=== PATIENT | female | born 1970 ===

== ENCOUNTER 2017-11-07 13:58 | Emergency (ER) | payer BC ==
[2017-11-07 15:26] VITALS: BP 115/82
--- NOTE | 2017-11-07 17:33 | UC ---
Complaint Female HPI - HPI Summary HPI Summary: preeti is 47-year-old female presenting to the with chief complaint of suprapubic pressure without pain. Also endorses frequency, urgency and pain as she is stopping the strain on urination. She states she has been sitting for a few days while weeping and had tight pants to the area which may be contributory. Denies any chance of STDs. Denies any back pain. Denies any fevers, sweats, chills. She has never had a kidney stone. History of UTI several years ago, but states she had more burning at that time. Denies any vaginal discharge, or any malodorous discharge. She states she awoke this morning with slight itching to the vagina as well, but this has since dissipated. She has never had a yeast infection. - History Of Current Complaint Chief Complaint: UCGU Stated Complaint: VAGINAL COMPLAINT Time Seen by Provider: 11/07/17 16:25 Hx Obtained From: Patient ?: No Onset/Duration: Sudden Onset Timing: Constant Severity Initially: Moderate Severity Currently: Moderate Pain Intensity: 2 Pain Scale Used: 0-10 Numeric Character: Burning Alleviating Factor(s): Position - standing improves the pain Associated Signs And Symptoms: Negative: Fever, Back Pain, Vaginal Bleeding/ Discharge, Vaginal Discharge, Vomiting(# Of Episodes =), Genital Swelling, Retained Foregin Body (Specify) - Risk Factors Ectopic Risk Factor: Negative Ovarian Torsion Risk Factor: Negative - Allergies/Home Medications Allergies/Adverse Reactions: Allergies Allergy/AdvReac Type Severity Reaction Status Date / Time No Known Allergies Allergy Verified 11/07/17 15:26 PMH/Surg Hx/FS Hx/Imm Hx Previously Healthy: Yes - Surgical History Surgical History: Yes Surgery Procedure, Year, and Place: Right acl 2016 - Family History Known Family History: Positive: Unknown - Social History Occupation: Employed Full-time Lives: With Family Alcohol Use: None Substance Use Type: None Smoking Status (MU): Former Smoker Review of Systems Constitutional: Negative Skin: Negative Respiratory: Negative Cardiovascular: Negative Genitourinary: Dysuria, Frequency, Urgency, Other - suprapubic pain Motor: Negative Neurovascular: Negative Musculoskeletal: Negative Neurological: Negative Is Patient Immunocompromised?: No All Other Systems Reviewed And Are Negative: Yes Physical Exam Triage Information Reviewed: Yes Appearance: Well-Appearing, No Pain Distress, Well-Nourished Vital Signs: Initial Vital Signs Temp 98.1 F 11/07/17 15:22 Pulse 73 11/07/17 15:22 Resp 18 11/07/17 15:22 BP 115/82 11/07/17 15:22 Pulse Ox 100 11/07/17 15:22 Vital Signs Reviewed: Yes Neck exam: Normal Neck: Positive: Supple, No Lymphadenopathy Respiratory: Positive: Chest non-tender Cardiovascular: Positive: RRR, No Murmur Musculoskeletal Exam: Normal Musculoskeletal: Positive: Strength Intact Neurological: Positive: Alert Psychological: Positive: Normal Response To Family Skin Exam: Normal Complaint Female Dx - Course Course Of Treatment: during the course the patient is evaluated for UTI versus yeast infection. She has suprapubic tenderness on palpation. She endorses this pain as pressure and states she is also having some burning to the end of her urination stream. She has frequency going 2-3 times per hour. She states she does not feel she is dehydrated and has been drinking plenty of water. She denies any chance of STDs. She denies any vaginal discharge which is malodorous. UA obtained which shows negative for leuks and PVCs. Based on her symptoms and she will still be treated as a UTI. She will follow-up with urology for any worsening or changing symptoms as this could be an interstitial cystitis. She is given Pyridium for bladder pressure and discomfort. - Differential Dx/Diagnosis Provider Diagnoses: UTI Discharge - Sign-Out/Discharge Documenting (check all that apply): Discharge/Admit/Transfer - Discharge Plan Condition: Stable Disposition: HOME Prescriptions: Cephalexin CAP* [Keflex CAP*] 500 mg PO QID #20 cap MDD 4 Phenazopyridine TAB* [Pyridium 100 mg TAB*] 100 mg PO TID #12 tab Patient Education Materials: Dysuria (ED) Referrals: No Primary Care Phys,NOPCP [Primary Care Provider] - Nehemias Wooten MD [Medical Doctor] - Additional Instructions: Keflex take 4 times daily 5 days Pyridium may be taken up to 3 times daily If you develop any fevers, sweats, chills, go to the ED immediately For any worsening symptoms, follow-up with urology - Billing Disposition and Condition Condition: STABLE Disposition: HOME
--- NOTE | 2017-11-09 07:57 | UC ---
- Progress Note Progress Note: notify pt no UTI stop antibiotic recheck if still symptomatic Discharge - Sign-Out/Discharge Documenting (check all that apply): Post-Discharge Follow Up - Discharge Plan Condition: Stable Disposition: HOME Prescriptions: Cephalexin CAP* [Keflex CAP*] 500 mg PO QID #20 cap MDD 4 Phenazopyridine TAB* [Pyridium 100 mg TAB*] 100 mg PO TID #12 tab Patient Education Materials: Dysuria (ED) Referrals: No Primary Care Phys,NOPCP [Primary Care Provider] - Nehemias Wooten MD [Medical Doctor] - Additional Instructions: Keflex take 4 times daily 5 days Pyridium may be taken up to 3 times daily If you develop any fevers, sweats, chills, go to the ED immediately For any worsening symptoms, follow-up with urology - Billing Disposition and Condition Condition: STABLE Disposition: HOME
== END 2017-11-07 16:50 | disposition home or self-care (01) ==
LOC: UCEAST 13:58
DX: N39.0 Urinary tract infection, site not specified (principal); Z87.891 Personal history of nicotine dependence
CPT/HCPCS: 81003; 87086; 99202; G0463

== ENCOUNTER 2017-11-09 13:19 | Emergency (ER) | payer BC ==
[2017-11-09] MEDS ORDERED: NS 0.9% 1000 ML* 1,000 ML IV ONE (13:51)
[2017-11-09 14:07] LABS: ABS Basophils 0.1 10^3/ul (0-0.2); ABS Eosinophils 0.1 10^3/ul (0-0.6); ABS Lymphocytes 2.3 10^3/ul (1.0-4.8); ABS Monocytes 0.4 10^3/ul (0-0.8); ABS Neutrophils 3.7 10^3/ul (1.5-7.7); ABS Nucleated RBC 0 10^3/ul; Eosinophil % 1.6 % (0-6); Hematocrit 38 % (35-47); Hemoglobin 12.7 g/dl (12.0-16.0); Lymphocyte % 34.5 % (25-47); Mean Corpuscular HGB Conc 33 g/dl (31-36); Mean Corpuscular Hemoglobin 29 pg (27-31); Mean Corpuscular Volume 88 fL (80-97); Mean Platelet Volume 8.6 um3 (7.4-10.4); Nucleated Red Blood Cells % 0.1; Platelet Count 184 10^3/ul (150-450); Red Blood Count 4.34 10^6/ul (4.0-5.4); Red Cell Distribution Width 13 % (10.5-15); White Blood Count 6.6 10^3/ul (3.5-10.8)
[2017-11-09 14:15] LABS: INR 0.92 (0.77-1.02)
[2017-11-09 14:21] LABS: Urine Appearance Clear; Urine Blood 1+ (Negative); Urine Color Amber; Urine Ketones Negative (Negative); Urine Protein Negative (Negative); Urine Specific Gravity 1.013 (1.010-1.030); Urine Urobilinogen Negative (Negative)
[2017-11-09 14:25] LABS: EGFR Non-African American 76.2 (>60)
[2017-11-09] MEDS ORDERED: Iohexol 300* (CONTRAST) 10 ML SDV IV ONE (15:37)
--- NOTE | 2017-11-09 16:13 | RAD ---
INDICATION: Diverticulitis COMPARISON: None TECHNIQUE: Axial source images were obtained from the hemidiaphragms to the symphysis pubis following administration of oral and intravenous contrast. 76 mL Omnipaque 300 was utilized. Coronal and sagittal reconstructed images were acquired. Lung bases: The lung bases are clear. Liver: The liver is normal in size. There are no masses. There is no ductal dilatation. Gallbladder: There are no calcified gallstones. There is no evidence of wall thickening or pericholecystic fluid. Spleen: The spleen is normal in size. There are no masses. Pancreas: There is no focal pancreatic mass or ductal dilatation. Adrenal glands: There is no evidence of adrenal mass. Kidneys: The kidneys are normal in size and position. There are prompt nephrograms and there is prompt excretion bilaterally. There are no renal parenchymal masses. There is no evidence of nephrolithiasis. Adenopathy: There is no evidence of adenopathy by size criteria. Fluid collections: There are no free or localized fluid collections. Vessels:There are no significant atherosclerotic changes involving the aorta. There is no focal aneurysm. The iliac vessels are normal in caliber. The IVC appears normal. GI tract: There are no acute CT bowel findings. There is no obstruction. The stomach and small bowel appear normal. There is large amount of stool throughout the colon but the colon is otherwise unremarkable. There is no CT evidence of diverticulitis there are no significant diverticula. Pelvic organs: The uterus and adnexa appear normal Bladder: There are no bladder masses. Abdominal and pelvic soft tissues: The extraperitoneal abdominal and pelvic soft tissues appear normal.. Osseous structures: There are no acute osseous findings. Other: None IMPRESSION: RETAINED STOOL. NO ADDITIONAL SIGNIFICANT CT FINDINGS
[2017-11-09] MEDS ORDERED: Levofloxacin TAB* 500 MG PO ONE (16:40)
--- NOTE | 2017-11-09 17:01 | ED ---
Tyrese Sparks Gabriel, scribed for Francisco Gillespie on 11/09/17 at 1345 . GI/ HPI - HPI Summary HPI Summary: This patient is a 47 year old F presenting to [facility] with a chief complaint of suprapubic pain since 11-02-17. Pt was seen at 2 days ago for the same symptoms, dx UTI, and given abx. She states that since then there has been no resolution. called this morning to tell her urine culture was negative and encouraged her to come here. The patient rates the pain 5/10 in severity. Patient reports bladder cramps, chills, and dysuria. Patient denies n/v/d, rash , and vaginal discharge. - History of Current Complaint Chief Complaint: EDUrogenitalProblems Time Seen by Provider: 11/09/17 13:40 Stated Complaint: PELVIC PAIN Hx Obtained From: Patient Onset/Duration: Started Days Ago, Still Present Timing: Constant, Lasting Days Severity: Moderate Current Severity: Moderate Pain Intensity: 5 Location of Pain: Suprapubic Pain Characteristics: Cramping Associated Signs and Symptoms: Positive: Negative - rash, n/v/d, Other: - bladder cramps - Allergy/Home Medications Allergies/Adverse Reactions: Allergies Allergy/AdvReac Type Severity Reaction Status Date / Time No Known Allergies Allergy Verified 11/09/17 13:35 PMH/Surg Hx/FS Hx/Imm Hx Endocrine/Hematology History: Denies: Hx Diabetes, Hx Thyroid Disease Cardiovascular History: Denies: Hx Hypertension Respiratory History: Denies: Hx Asthma, Hx Chronic Obstructive Pulmonary Disease (COPD) GI History: Denies: Hx Ulcer - Surgical History Surgery Procedure, Year, and Place: Right 2015 Infectious Disease History: No Infectious Disease History: Denies: Hx Hepatitis, Hx Human Immunodeficiency Virus (HIV), Traveled Outside the [place] in Last 30 Days - Family History Known Family History: Negative: Respiratory Disease, Seizure Disorder - Social History Lives: With Family Alcohol Use: None Substance Use Type: Reports: None Smoking Status (MU): Former Smoker Review of Systems Positive: Chills Positive: Abdominal Pain. Negative: Vomiting, Diarrhea, Nausea Positive: dysuria, other - bladder cramps . Negative: discharge Negative: Rash All Other Systems Reviewed And Are Negative: Yes Physical Exam - Summary Physical Exam Summary: Appearance: Well appearing, no pain distress Skin: warm, dry, reflects adequate perfusion Head/face: normal Eyes: EOMI, DESTIN ENT: normal Neck: supple, non-tender Respiratory: CTA, breath sounds present Cardiovascular: RRR, pulses symmetrical Abdomen: mild TTP in the RLQ and LLQ Bowel: present Musculoskeletal: normal, strength/ROM intact Neuro: normal, sensory motor intact, A&Ox3 Triage Information Reviewed: Yes Vital Signs On Initial Exam: Initial Vitals Temp Pulse Resp BP Pulse Ox 98.8 F 91 16 121/80 96 11/09/17 13:30 11/09/17 13:30 11/09/17 13:30 11/09/17 13:30 11/09/17 13:30 Vital Signs Reviewed: Yes Diagnostics - Vital Signs Vital Signs Temp Pulse Resp BP Pulse Ox 11/09/17 13:30 98.8 F 91 16 121/80 96 - Laboratory Lab Results: Lab Results 11/09/17 11/09/17 11/09/17 Range/Units 13:56 14:01 14:01 WBC 6.6 (3.5-10.8) 10^3/ul RBC 4.34 (4.0-5.4) 10^6/ul Hgb 12.7 (12.0-16.0) g/dl Hct 38 (35-47) % MCV 88 (80-97) fL MCH 29 (27-31) pg MCHC 33 (31-36) g/dl RDW 13 (10.5-15) % Plt Count 184 (150-450) 10^3/ul MPV 8.6 (7.4-10.4) um3 Neut % (Auto) 56.5 (38-83) % Lymph % (Auto) 34.5 (25-47) % Cooper % (Auto) 6.1 (0-7) % Eos % (Auto) 1.6 (0-6) % Baso % (Auto) 1.3 (0-2) % Absolute Neuts (auto) 3.7 (1.5-7.7) 10^3/ul Absolute Lymphs (auto) 2.3 (1.0-4.8) 10^3/ul Absolute Monos (auto) 0.4 (0-0.8) 10^3/ul Absolute Eos (auto) 0.1 (0-0.6) 10^3/ul Absolute Basos (auto) 0.1 (0-0.2) 10^3/ul Absolute Nucleated RBC 0 10^3/ul Nucleated RBC % 0.1 INR (Anticoag Therapy) 0.92 (0.77-1.02) APTT 30.6 (26.0-36.3) seconds Sodium (139-145) mmol/L Potassium (3.5-5.0) mmol/L Chloride (101-111) mmol/L Carbon Dioxide (22-32) mmol/L Anion Gap (2-11) mmol/L BUN (6-24) mg/dL Creatinine (0.51-0.95) mg/dL Est GFR ( Amer) (>60) Est GFR (Non-Af Amer) (>60) BUN/Creatinine Ratio (8-20) Glucose (70-100) mg/dL Calcium (8.6-10.3) mg/dL Total Bilirubin (0.2-1.0) mg/dL AST (13-39) U/L ALT (7-52) U/L Alkaline Phosphatase (34-104) U/L Troponin I (<0.04) ng/mL Total Protein (6.4-8.9) g/dL Albumin (3.2-5.2) g/dL Globulin (2-4) g/dL Albumin/Globulin Ratio (1-3) Lipase (11.0-82.0) U/L Beta HCG, Quant mIU/mL Urine Color Karen Urine Appearance Clear Urine pH 6.0 (5-9) Ur Specific [place] 1.013 (1.010-1.030) Urine Protein Negative (Negative) Urine Ketones Negative (Negative) Urine Blood 1+ A (Negative) Urine Nitrate Positive A (Negative) Urine Bilirubin Negative (Negative) Urine Urobilinogen Negative (Negative) Ur Leukocyte Esterase Negative (Negative) Urine WBC (Auto) Trace(0-5/hpf) (Absent) Urine RBC (Auto) 2+(6-10/hpf) A (Absent) Ur Squamous Epith Cells Present A (Absent) Urine Bacteria Absent (Absent) Urine Glucose Negative (Negative) Urine Ascorbic Acid * A (Negative) 11/09/17 Range/Units 14:01 WBC (3.5-10.8) 10^3/ul RBC (4.0-5.4) 10^6/ul Hgb (12.0-16.0) g/dl Hct (35-47) % MCV (80-97) fL MCH (27-31) pg MCHC (31-36) g/dl RDW (10.5-15) % Plt Count (150-450) 10^3/ul MPV (7.4-10.4) um3 Neut % (Auto) (38-83) % Lymph % (Auto) (25-47) % Cooper % (Auto) (0-7) % Eos % (Auto) (0-6) % Baso % (Auto) (0-2) % Absolute Neuts (auto) (1.5-7.7) 10^3/ul Absolute Lymphs (auto) (1.0-4.8) 10^3/ul Absolute Monos (auto) (0-0.8) 10^3/ul Absolute Eos (auto) (0-0.6) 10^3/ul Absolute Basos (auto) (0-0.2) 10^3/ul Absolute Nucleated RBC 10^3/ul Nucleated RBC % INR (Anticoag Therapy) (0.77-1.02) APTT (26.0-36.3) seconds Sodium 137 L (139-145) mmol/L Potassium 3.8 (3.5-5.0) mmol/L Chloride 101 (101-111) mmol/L Carbon Dioxide 29 (22-32) mmol/L Anion Gap 7 (2-11) mmol/L BUN 16 (6-24) mg/dL Creatinine 0.80 (0.51-0.95) mg/dL Est GFR ( Amer) 98.0 (>60) Est GFR (Non-Af Amer) 76.2 (>60) BUN/Creatinine Ratio 20.0 (8-20) Glucose 142 H (70-100) mg/dL Calcium 9.8 (8.6-10.3) mg/dL Total Bilirubin 0.40 (0.2-1.0) mg/dL AST 23 (13-39) U/L ALT 28 (7-52) U/L Alkaline Phosphatase 40 (34-104) U/L Troponin I 0.00 (<0.04) ng/mL Total Protein 7.2 (6.4-8.9) g/dL Albumin 4.2 (3.2-5.2) g/dL Globulin 3.0 (2-4) g/dL Albumin/Globulin Ratio 1.4 (1-3) Lipase 43 (11.0-82.0) U/L Beta HCG, Quant 1.37 mIU/mL Urine Color Urine Appearance Urine pH (5-9) Ur Specific [place] (1.010-1.030) Urine Protein (Negative) Urine Ketones (Negative) Urine Blood (Negative) Urine Nitrate (Negative) Urine Bilirubin (Negative) Urine Urobilinogen (Negative) Ur Leukocyte Esterase (Negative) Urine WBC (Auto) (Absent) Urine RBC (Auto) (Absent) Ur Squamous Epith Cells (Absent) Urine Bacteria (Absent) Urine Glucose (Negative) Urine Ascorbic Acid (Negative) Result Diagrams: 11/09/17 14:01 11/09/17 14:01 Lab Statement: Any lab studies that have been ordered have been reviewed, and results considered in the medical decision making process. - CT CT ABD/Pelvis CT Interpretation Completed By: Radiologist - RETAINED STOOL. NO ADDITIONAL SIGNIFICANT CT FINDINGS ED physician has reviewed this radiology report. GIGU Course/Dx - Course Assessment/Plan: This patient is a 47 year old F presenting to [facility] with a chief complaint of suprapubic pain since 11-02-17. Pt was seen at 2 days ago for the same symptoms, dx UTI, and given abx. She states that since then there has been no resolution. called this morning to tell her urine culture was negative and encouraged her to come here. The patient rates the pain 5/10 in severity. Patient reports bladder cramps, chills, and dysuria. Patient denies n/ v/d, rash, and vaginal discharge. CT ABD/Pelvis reveals, per radiologist, RETAINED STOOL. NO ADDITIONAL SIGNIFICANT CT FINDINGS. Blood work obtained. UA was positive for UTI. In the ED course the patient was given IV fluids and levaquin. Patient will be discharged with prescription for levaquin and follow up from PCP. The patient is agreeable with this plan. - Diagnoses Differential Diagnoses - Female: Diverticulitis, Pancreatitis, Urinary Tract Infection, Ureteral Calculi Provider Diagnoses: UTI (urinary tract infection) Discharge - Sign-Out/Discharge Documenting (check all that apply): Discharge/Admit/Transfer - Discharge Plan Condition: Stable Disposition: HOME Prescriptions: Levofloxacin TAB* [Levaquin TAB*] 500 mg PO DAILY #4 tab Patient Education Materials: Urinary Tract Infection in Women (ED) [place]errals: [facility] [place]] - 3 Days Additional Instructions: RETURN TO THE ER FOR ANY NEW OR WORSENING SYMPTOMS - Billing Disposition and Condition Condition: STABLE Disposition: HOME The documentation as recorded by the Tyrese barry Gabriel accurately reflects the service I personally performed and the decisions made by , Francisco Gillespie.
[2017-11-09 17:08] VITALS: BP 112/73
== END 2017-11-09 17:04 | disposition home or self-care (01) ==
LOC: ED 13:19
DX: N39.0 Urinary tract infection, site not specified (principal); Z87.891 Personal history of nicotine dependence
CPT/HCPCS: 36415; 74177; 80053; 81003; 81015; 83690; 84484; 84702; 85025; 85610; 85730; 87086; 96360; 96361; 99282; Q9967